=== PATIENT | female | born 1985 | race Two or more races ===

== ENCOUNTER 2019-01-05 01:30 | Observation (INO) | payer MEDICAID ==
[~2019-01-05] VITALS: Ht 154.9 cm; Wt 83.9 kg
[2019-01-05] MEDS ORDERED: FOLI0.4T2 MT (02:44)
[2019-01-05] MEDS ORDERED: PNV1TABL50 MT (02:44)
[2019-01-05] MEDS ORDERED: FERR236T3 MT (02:45)
[2019-01-05] MEDS ORDERED: LACTATED RINGERS 1,000 ML IV SCH (03:00)
[2019-01-05 03:13] LABS: CLARITY URINE CLOUDY (CLEAR); COLOR URINE YELLOW (YELLOW); KETONES URINE 2+ (NEGATIVE); LEUKOCYTE ESTERASE URINE 2+ (NEGATIVE); NITRITE URINE NEGATIVE (NEGATIVE); OCCULT BLOOD URINE NEGATIVE (NEGATIVE); PH URINE 5.5 (4.5-8.0); PROTEIN URINE NEGATIVE (NEGATIVE); SPECIFIC GRAVITY URINE 1.024 (1.005-1.030); UROBILINOGEN URINE 0.2 E.U./dL (0.2-1.0)
[2019-01-05] MEDS ORDERED: ONDANSETRON HCL 4MG/2ML INJ IV NR (03:30)
[2019-01-05] MEDS ORDERED: CEFAZOLIN 2,000 MG in SODIUM CHLORIDE 0.9% 100 ML IV SCH (03:30)
[2019-01-05] MEDS ORDERED: ACETAMINOPHEN 500MG TABLET PO NR (04:00)
== END 2019-01-05 06:00 | disposition home or self-care (01) ==
LOC: 8 EST LDRP 01:30
PROVIDERS: ADMIT Obstetrics & Gynecology; ATTEND Obstetrics & Gynecology
DX: O26.892 Other specified pregnancy related conditions, second trimester (principal); R10.30 Lower abdominal pain, unspecified; Z3A.25 25 weeks gestation of pregnancy
CPT/HCPCS: 81003; 82962; 87086; 96365; 96375; 99281; G0378; J0690; J2405; J7030; 96360; 96361; J7120

== ENCOUNTER 2022-08-06 23:12 | Emergency (ER) | payer MEDICAID ==
[~2022-08-06] VITALS: Ht 162.6 cm; Wt 91.8 kg
[~2022-08-06 23:12] MED LIST: FERR236T3 MT; FOLI0.4T6 MT; PNV1TABL50 MT
[2022-08-07] MEDS ORDERED: IBUPROFEN 600MG TABLET PO ONE (05:45)
[2022-08-07 06:21] LABS: CLARITY URINE CLEAR (CLEAR); COLOR URINE YELLOW (YELLOW); KETONES URINE NEGATIVE (NEGATIVE); LEUKOCYTE ESTERASE URINE 3+ (NEGATIVE); NITRITE URINE NEGATIVE (NEGATIVE); OCCULT BLOOD URINE 2+ (NEGATIVE); PROTEIN URINE TRACE (NEGATIVE); SPECIFIC GRAVITY URINE 1.009 (1.005-1.030); UROBILINOGEN URINE 0.2 E.U./dL (0.2-1.0)
[2022-08-07 06:25] VITALS: BP 128/70
[2022-08-07] MEDS ORDERED: AMOX1TAB16 MT (10:08)
[2022-08-07] MEDS ORDERED: IBUP-2029 MT (10:08)
== END 2022-08-07 10:20 | disposition home or self-care (01) ==
LOC: ER 23:12
DX: N39.0 Urinary tract infection, site not specified (principal)
CPT/HCPCS: 81003; 81025; 99283